=== PATIENT | female | born 1950 | race Caucasian/White ===

== ENCOUNTER 2018-10-22 14:44 | Emergency (ER) | payer MEDICARE, OTHER ==
--- NOTE | 2018-10-22 15:17 | Emergency Department Record ---
History of Present Illness - General Chief Complaint: Fall Injury Stated Complaint: FALL INJURY Time Seen by Provider: 10/22/18 14:59 Source: Patient, RN notes reviewed Mode of Arrival: Ambulatory - History of Present Illness Initial Comments: patient fell one week ago and seen at [facility] and she said her visiting nurse told her to go to the ED and have her leg checked because she was concerned about it being warm and she sees Dr Painting for history of hematuria and she had a das while in the hospital. patient had a cystoscopy about 2 years ago. Her right leg hematoma looks good but she talks mention she sees blood on her under shepherd seen on and off since the fall. Patient said at [facility] she was told she was low on iron. MD Complaint: Fall Onset/Timin -: Week(s) When Fall Occurred: # Days [employer] Fall Occurred: Home Loss of Consciousness: None Prolonged Down Time?: No Symptoms Prior to Fall: None Severity: Mild Severity scale (1-10): 8 Quality: Aching Context: Tripped/slipped Associated Symptoms: Denies - Related Data Allergies Allergy/AdvReac Type Severity Reaction Status Date / Time No Known Drug Allergies Allergy Unverified 09/30/17 10:46 Travel Screening - Travel/Exposure Within Last 30 Days Have you traveled within the last 30 days?: No Review of Systems Reviewed: No additional complaints except as noted below Constitutional: Reports: As per HPI. Denies: Chills, Fever, Malaise, Night sweats, Weakness, Weight change Eyes: Reports: As per HPI. Denies: Eye discharge, Eye pain, Photophobia, Vision change ENT: Reports: As per HPI. Denies: Congestion, Dental pain, Ear pain, Epistaxis , Hearing loss, Throat pain Respiratory: Reports: As per HPI. Denies: Cough, Dyspnea, Hemoptysis, Stridor, Wheezes Cardiovascular: Reports: As per HPI. Denies: Arrhythmia, Chest pain, Dyspnea on exertion, Edema, Murmurs, Orthopnea, Palpitations, Paroxysmal nocturnal dyspnea, Rheumatic Fever, Syncope Endocrine: Reports: As per HPI. Denies: Fatigue, Heat or cold intolerance, Polydipsia, Polyuria Gastrointestinal: Reports: As per HPI. Denies: Abdominal pain, Constipation, Diarrhea, Hematemesis, Hematochezia, Melena, Nausea, Vomiting Genitourinary: Reports: As per HPI. Denies: Abnormal menses, Discharge, Dyspareunia, Dysuria, Frequency, Hematuria, Incontinence, Retention, Urgency Musculoskeletal: Reports: As per HPI. Denies: Arthralgia, Back pain, Gout, Joint swelling, Myalgia, Neck pain Skin: Reports: As per HPI. Denies: Bruising, Change in color, Change in hair/ nails, Lesions, Pruritus, Rash Neurological: Reports: As per HPI. Denies: Abnormal gait, Confusion, Headache, Numbness, Paresthesias, Seizure, Tingling, Tremors, Vertigo, Weakness Psychiatric: Reports: As per HPI. Denies: Anxiety, Auditory hallucinations, Depression, Homicidal thoughts, Suicidal thoughts, Visual hallucinations Hematological/Lymphatic: Reports: As per HPI. Denies: Anemia, Blood Clots, Easy bleeding, Easy bruising, Swollen glands Past Medical History - SOCIAL HISTORY Smoking Status: Never smoker - RESPIRATORY Hx Respiratory Disorders: Yes Hx COPD: Yes - CARDIOVASCULAR Hx Cardio Disorders: Yes Hx CHF: Yes Hx Hypertension: Yes - NEURO Hx Neuro Disorders: Yes Hx TIA: Yes - GI Hx GI Disorders: No - Hx Genitourinary Disorders: No - ENDOCRINE Hx Endocrine Disorders: Yes Hx Diabetes: Yes Hx Thyroid Disease: Yes - MUSCULOSKELETAL Hx Musculoskeletal Disorders: Yes Comment:: bilat. knee replacement - PSYCH Hx Psych Problems: Yes Hx Depression: Yes - HEMATOLOGY/ONCOLOGY Hx Hematology/Oncology Disorders: No Family Medical History Any Significant Family History?: No Physical Exam - General General Appearance: Alert, Oriented x3, Cooperative, No acute distress - Head Head exam: Normal inspection - Eye Eye exam: Normal appearance, PERRL Pupils: Normal accommodation - ENT ENT exam: Normal exam, Mucous membranes moist, Normal external ear exam, Normal orophraynx, TM's normal bilaterally Ear exam: Normal external inspection. negative: External canal tenderness Nasal Exam: Normal inspection. negative: Discharge, Sinus tenderness Mouth exam: Normal external inspection, Tongue normal Teeth exam: Normal inspection. negative: Dental caries Throat exam: Normal inspection. negative: Tonsillar erythema, Tonsillar exudate - Neck Neck exam: Normal inspection, Full ROM. negative: Tenderness - Respiratory Respiratory exam: Normal lung sounds bilaterally. negative: Respiratory distress - Cardiovascular Cardiovascular Exam: Regular rate, Normal rhythm, Normal heart sounds - GI/Abdominal GI/Abdominal exam: Soft, Normal bowel sounds. negative: Tenderness - Rectal Rectal exam: Deferred - exam: Abnormal external exam (small skin tear on the right side of vagina and probably the reason for the bleeding,external vagina between labia majoria and minoria), Normal speculum exam (no bleeding from vagina now ) - Extremities Extremities exam: Normal inspection, Full ROM, Normal capillary refill. negative: Tenderness - Back Back exam: Reports: Normal inspection, Full ROM. Denies: Muscle spasm, Rash noted, Tenderness - Neurological Neurological exam: Alert, Normal gait, Oriented X3, Reflexes normal - Psychiatric Psychiatric exam: Normal affect, Normal mood - Skin Skin exam: Dry, Intact, Normal color, Warm Course Vital Signs 10/22/18 14:51 Temperature 97.3 F L Pulse Rate 60 Respiratory 16 Rate Blood Pressure 127/73 Pulse Ox 93 L - Reevaluation(s) Reevaluation #1: 10/22/18 16:04 no sutures required Medical Decision Making - Lab Data Result diagrams: 10/22/18 15:30 10/22/18 15:30 Disposition Clinical Impression: Vaginal laceration, old Hematoma of leg Qualifiers: Encounter type: initial encounter Laterality: right Qualified Code(s): S80.11XA - Contusion of right lower leg, initial encounter Disposition: Home, Self-Care Condition: (1) Good Instructions: Fall Prevention for Older Adults (ED) Additional Instructions: neosporin ointment twice a day follow up with family DR in one week Forms: Patient Portal Access Time of Disposition: 16:05 Quality - Quality Measures Quality Measures: N/A - Blood Pressure Screening Does Patient Have Any of the Following: No, Active Dx of HTN Blood Pressure Classification: Pre-Hypertensive BP Reading Systolic Measurement: 127 Diastolic Measurement: 73 Screening for High Blood Pressure: Patient Exclusion, Hx of HTN [G9744]
[2018-10-22 15:38] LABS: URINE APPEARANCE CLEAR; URINE BILIRUBIN NEGATIVE (NEGATIVE); URINE BLOOD LARGE (NEGATIVE); URINE COLOR YELLOW; URINE GLUCOSE (UA) NEGATIVE (NEGATIVE); URINE KETONE NEGATIVE (NEGATIVE); URINE LEUKOCYTE ESTERASE MODERATE (NEGATIVE); URINE NITRITE NEGATIVE (NEGATIVE); URINE PROTEIN NEGATIVE (NEGATIVE); URINE UROBILINOGEN 0.2 E.U./dL (0.20 - 1.00)
[2018-10-22 15:40] LABS: BASO % 0.6 % (0-6); EOS % 1.4 % (0-6); GRAN % 58.7 % (47-80); HEMATOCRIT 36.8 % (35.0-47.0); HEMOGLOBIN 11.2 gm/dl (11.6-16.0); LYMPH % 26.7 % (16-45); MEAN CELL VOLUME 80.2 fl (81-97); MEAN CORPUSCULAR HEMOGLOBIN 24.4 pg (27-33); MEAN CORPUSCULAR HGB CONC 30.4 g/dl (32-36); MEAN PLATELET VOLUME 10.7 fl (7.4-10.4); MONO % 12.6 % (0-9); PLATELET COUNT 196 K/uL (130-400); RED BLOOD COUNT 4.59 M/uL (3.80-5.40); RED CELL DISTRIBUTION WIDTH 18.7 % (11.5-14.5); WHITE BLOOD COUNT W/O DIFF 7.1 K/uL (4.2-12.2)
[2018-10-22 15:47] LABS: URINE EPITHELIAL CELLS 0 - 2 (FEW)
[2018-10-22 15:48] LABS: CREATININE 1.5 mg/dL (0.5-0.9)
--- NOTE | 2018-10-22 16:14 | Emergency Department Record ---
History of Present Illness - General Chief Complaint: Fall Injury Stated Complaint: FALL INJURY Time Seen by Provider: 10/22/18 14:59 Source: Patient, RN notes reviewed Mode of Arrival: Ambulatory - History of Present Illness Onset/Timin -: Week(s) When Fall Occurred: # Days [employer] Place Fall Occurred: Home Loss of Consciousness: None Prolonged Down Time?: No Symptoms Prior to Fall: None Severity: Mild Severity scale (1-10): 8 Quality: Aching Context: Tripped/slipped Associated Symptoms: Denies - Related Data Previous Rx's Medication Instructions Recorded Cephalexin [Keflex] 500 mg PO QID #40 cap 10/22/18 Allergies Allergy/AdvReac Type Severity Reaction Status Date / Time No Known Drug Allergies Allergy Unverified 09/30/17 10:46 Travel Screening - Travel/Exposure Within Last 30 Days Have you traveled within the last 30 days?: No Review of Systems Constitutional: Reports: As per HPI. Denies: Chills, Fever, Malaise, Night sweats, Weakness, Weight change Eyes: Reports: As per HPI. Denies: Eye discharge, Eye pain, Photophobia, Vision change ENT: Reports: As per HPI. Denies: Congestion, Dental pain, Ear pain, Epistaxis , Hearing loss, Throat pain Respiratory: Reports: As per HPI. Denies: Cough, Dyspnea, Hemoptysis, Stridor, Wheezes Cardiovascular: Reports: As per HPI. Denies: Arrhythmia, Chest pain, Dyspnea on exertion, Edema, Murmurs, Orthopnea, Palpitations, Paroxysmal nocturnal dyspnea, Rheumatic Fever, Syncope Endocrine: Reports: As per HPI. Denies: Fatigue, Heat or cold intolerance, Polydipsia, Polyuria Gastrointestinal: Reports: As per HPI. Denies: Abdominal pain, Constipation, Diarrhea, Hematemesis, Hematochezia, Melena, Nausea, Vomiting Genitourinary: Reports: As per HPI. Denies: Abnormal menses, Discharge, Dyspareunia, Dysuria, Frequency, Hematuria, Incontinence, Retention, Urgency Musculoskeletal: Reports: As per HPI. Denies: Arthralgia, Back pain, Gout, Joint swelling, Myalgia, Neck pain Skin: Reports: As per HPI. Denies: Bruising, Change in color, Change in hair/ nails, Lesions, Pruritus, Rash Neurological: Reports: As per HPI. Denies: Abnormal gait, Confusion, Headache, Numbness, Paresthesias, Seizure, Tingling, Tremors, Vertigo, Weakness Psychiatric: Reports: As per HPI. Denies: Anxiety, Auditory hallucinations, Depression, Homicidal thoughts, Suicidal thoughts, Visual hallucinations Hematological/Lymphatic: Reports: As per HPI. Denies: Anemia, Blood Clots, Easy bleeding, Easy bruising, Swollen glands Past Medical History - SOCIAL HISTORY Smoking Status: Never smoker - RESPIRATORY Hx Respiratory Disorders: Yes Hx COPD: Yes - CARDIOVASCULAR Hx Cardio Disorders: Yes Hx CHF: Yes Hx Hypertension: Yes - NEURO Hx Neuro Disorders: Yes Hx TIA: Yes - GI Hx GI Disorders: No - Hx Genitourinary Disorders: No - ENDOCRINE Hx Endocrine Disorders: Yes Hx Diabetes: Yes Hx Thyroid Disease: Yes - MUSCULOSKELETAL Hx Musculoskeletal Disorders: Yes Comment:: bilat. knee replacement - PSYCH Hx Psych Problems: Yes Hx Depression: Yes - HEMATOLOGY/ONCOLOGY Hx Hematology/Oncology Disorders: No Family Medical History Any Significant Family History?: No Course Vital Signs 10/22/18 14:51 Temperature 97.3 F L Pulse Rate 60 Respiratory 16 Rate Blood Pressure 127/73 Pulse Ox 93 L Medical Decision Making - Lab Data Result diagrams: 10/22/18 15:30 10/22/18 15:30 Lab Results 10/22/18 10/22/18 10/22/18 Range/Units 15:30 15:30 15:30 WBC 7.1 (4.2-12.2) K/uL RBC 4.59 (3.80-5.40) M/uL Hgb 11.2 L (11.6-16.0) gm/dl Hct 36.8 (35.0-47.0) % MCV 80.2 L (81-97) fl MCH 24.4 L (27-33) pg MCHC 30.4 L (32-36) g/dl RDW 18.7 H (11.5-14.5) % Plt Count 196 (130-400) K/uL MPV 10.7 H (7.4-10.4) fl Gran % 58.7 (47-80) % Lymphocytes % 26.7 (16-45) % Monocytes % 12.6 H (0-9) % Eosinophils % 1.4 (0-6) % Basophils % 0.6 (0-6) % Sodium 132 L (136-145) mmol/L Potassium 4.6 H (3.4-4.5) mmol/L Chloride 94 L (98-107) mmol/L Carbon Dioxide 25.0 (22-29) mmol/L Anion Gap 13.0 (7-16) BUN 40 H (8-23) mg/dL Creatinine 1.5 H (0.5-0.9) mg/dL Estimated GFR 37 mL/min Random Glucose 288 H (74-109) mg/dL Calcium 9.1 (8.8-10.2) mg/dL Urine Color Yellow Urine Appearance Clear Urine pH 6.5 (5.0-8.0) Ur Specific [place] <= 1.005 (1.002-1.030) Urine Protein Negative (NEGATIVE) Urine Glucose (UA) Negative (NEGATIVE) Urine Ketones Negative (NEGATIVE) Urine Blood Large H (NEGATIVE) Urine Nitrite Negative (NEGATIVE) Urine Bilirubin Negative (NEGATIVE) Urine Urobilinogen 0.2 (0.20 - 1.00) E.U./dL Ur Leukocyte Esterase Moderate H (NEGATIVE) Urine RBC 10 - 15 (NONE SEEN) Urine WBC 10 - 15 (0-2/hpf) Ur Epithelial Cells 0 - 2 (FEW) Disposition Clinical Impression: Vaginal laceration, old Hematoma of leg Qualifiers: Encounter type: initial encounter Laterality: right Qualified Code(s): S80.11XA - Contusion of right lower leg, initial encounter UTI (urinary tract infection) Qualifiers: Urinary tract infection type: acute cystitis Hematuria presence: with hematuria Qualified Code(s): N30.01 - Acute cystitis with hematuria Disposition: Home, Self-Care Condition: (1) Good Instructions: Fall Prevention for Older Adults (ED) Additional Instructions: neosporin ointment twice a day follow up with family DR in one week Prescriptions: Cephalexin [Keflex] 500 mg PO QID #40 cap Forms: Patient Portal Access Time of Disposition: 16:13 Quality - Quality Measures Quality Measures: N/A - Blood Pressure Screening Does Patient Have Any of the Following: No, Active Dx of HTN Blood Pressure Classification: Pre-Hypertensive BP Reading Systolic Measurement: 127 Diastolic Measurement: 73 Screening for High Blood Pressure: Patient Exclusion, Hx of HTN [G9744]
== END 2018-10-22 16:21 | disposition home or self-care (01) ==
LOC: ER 14:44
DX: S80.11XA Contusion of right lower leg, initial encounter (principal); N30.01 Acute cystitis with hematuria; N89.8 Other specified noninflammatory disorders of vagina; W01.0XXA Fall on same level from slipping, tripping and stumbling without subsequent striking against object, initial encounter; Y92.009 Unspecified place in unspecified non-institutional (private) residence as the place of occurrence of the external cause; I10 Essential (primary) hypertension; E11.9 Type 2 diabetes mellitus without complications; J44.9 Chronic obstructive pulmonary disease, unspecified; I50.9 Heart failure, unspecified
CPT/HCPCS: 80048; 81001; 85025; 99283